=== PATIENT | female | born 1990 | race Caucasian/White ===

== ENCOUNTER 2022-05-29 14:10 | Outpatient (CLI) | payer BC | END 2022-05-29 14:11 | disposition home or self-care (01) | LOC: CSHULT 14:10 | PROVIDERS: ATTEND Otolaryngology Plastic Surgery within the Head & Neck | DX: E04.8 Other specified nontoxic goiter (principal); E06.3 Autoimmune thyroiditis; E04.1 Nontoxic single thyroid nodule | CPT/HCPCS: 76536 ==

== ENCOUNTER 2023-08-04 19:30 | Inpatient (IN) | payer BC ==
[2023-08-05 01:22] VITALS: BMI 32.5
[2023-08-05] MEDS ORDERED: Zolpidem Tartrate 5 MG TAB PO PRN (02:28)
[2023-08-05] MEDS ORDERED: Ibuprofen 800 MG TAB PO PRN (02:28)
[2023-08-05] MEDS ORDERED: HYDROcodone/Acetaminophen 5/325 mg Tablet PO PRN ×3 (02:28→22:22)
[2023-08-05] MEDS ORDERED: hydrALAZINE 20 MG/ML VIAL SLOW IVP PRN ×2 (02:28→22:22)
[2023-08-05] MEDS ORDERED: Acetaminophen 500 MG TAB PO PRN (02:28)
[2023-08-05] MEDS ORDERED: Ondansetron PF 4 MG/2 ML Vial IVP PRN ×3 (02:28→22:22)
[2023-08-05] MEDS ORDERED: Carboprost 250 MCG/ML AMP IM PRN (02:28)
[2023-08-05] MEDS ORDERED: Methylergonovine 0.2 MG/ML VIAL IM PRN (02:28)
[2023-08-05] MEDS ORDERED: Misoprostol 200 MCG TAB PR PRN (02:28)
[2023-08-05] MEDS ORDERED: fentaNYL 50 mcg/mL 1 mL Vial SLOW IVP PRN (02:28)
[2023-08-05] MEDS ORDERED: Lidocaine 1% (PF) 30 ML VIAL SC PRN (02:28)
[2023-08-05] MEDS ORDERED: Promethazine HCl 25 MG/ML VIAL IM PRN ×3 (02:28→22:22)
[2023-08-05] MEDS ORDERED: Oxytocin 30 units/NS 500 ML 500 ML IV SCH ×2 (02:30)
[2023-08-05] MEDS ORDERED: Lactated Ringer's 1,000 ML IV SCH (02:30)
[2023-08-05] MEDS: Misoprostol 100 MCG TAB VAG SCH ×3 (02:55→09:45)
[2023-08-05 03:24] LABS: Hematocrit 33.2 % (34.9-44.5); Hemoglobin 11.5 g/dL (12.0-15.5); Mean Corpuscular HGB CONC 34.6 g/dL (32.0-36.0); Mean Corpuscular Hemoglobin 32.9 pg (27.0-33.0); Mean Corpuscular Volume 94.9 fl (81.6-98.3); Mean Platelet Volume 12.9 fl (7.4-10.4); Platelet Count 200 10x3/uL (150-450); RBC Distribution Width 13.5 % (11.5-14.5); White Blood Cell (WBC) Count 11.2 10x3/uL (3.5-10.5)
[2023-08-05 04:47] LABS: HBSAg Index 0.19 S/CO (0-0.99); Hep B Surf Ag - L&D Non-Reactive S/CO (NonReactive); Syphilis Antibody Nonreactive (Nonreactive); Syphilis Antibody Index 0.04 S/CO (<1.00 Non-Reactive)
[2023-08-05] MEDS ORDERED: fentaNYL/Ropivacaine Epidural 100 ML ONE (12:40)
[2023-08-05] MEDS ORDERED: Naloxone HCl 0.4 mg/ml Vial IVP PRN ×2 (13:57)
[2023-08-05] MEDS ORDERED: Lactated Ringer's 500 ML IV PRN (13:57)
[2023-08-05] MEDS ORDERED: ePHEDrine Sulfate 50 MG/10 ML VIAL SLOW IVP PRN (13:57)
[2023-08-05] MEDS ORDERED: diphenhydrAMINE 50 MG/ML VIAL IVP PRN (13:57)
[2023-08-05] MEDS ORDERED: Moisturizing Cream (Eucerin) 113 GM JAR TOP PRN (13:57)
[2023-08-05] MEDS ORDERED: Acetaminophen 325 MG TAB PO PRN (13:57)
[2023-08-05] MEDS ORDERED: Communication Order-Pharmacy FS SCH (14:00)
[2023-08-05] MEDS ORDERED: fentaNYL 2 mcg/Ropivacaine 0.2% Epidural 100 ML CADD EPIDURAL SCH (14:00)
[2023-08-05] MEDS ORDERED: Bupivacaine 0.25% HCL 30 ML VIAL ONE (18:00)
[2023-08-05] MEDS ORDERED: ePHEDrine Sulfate 50 MG/10 ML VIAL ONE (18:00)
[2023-08-05] MEDS ORDERED: Benzocaine-Menthol 82.5 ML CAN TOP PRN (22:22)
[2023-08-05] MEDS ORDERED: Milk Of Magnesia 30 ML UDCUP PO PRN (22:22)
[2023-08-05] MEDS ORDERED: Lanolin Ointment 7 GM TUBE TOP PRN (22:22)
[2023-08-05] MEDS ORDERED: Preparation H Ointment 28 GM TUBE PR PRN (22:22)
[2023-08-05] MEDS ORDERED: Bisacodyl 10 MG SUPP PR PRN (22:22)
[2023-08-05] MEDS ORDERED: diphenhydrAMINE 25 MG CAP PO PRN (22:22)
[2023-08-05] MEDS ORDERED: Boostrix 0.5 ML (Tdap) VIAL (>/=7 yrs of age) IM ONE (22:22)
[2023-08-05] MEDS ORDERED: Docusate 100 MG CAP PO SCH (22:45)
[2023-08-05] MEDS ORDERED: Ibuprofen 800 MG TAB PO SCH (22:45)
[2023-08-06 04:39] LABS: Hematocrit 27.8 % (34.9-44.5); Hemoglobin 9.7 g/dL (12.0-15.5)
[2023-08-06] MEDS: Ibuprofen 800 MG TAB PO SCH ×3 (05:08→21:07)
[2023-08-06] MEDS: Misoprostol 100 MCG TAB VAG SCH ×2 (07:39→07:40)
[2023-08-06] MEDS: Docusate 100 MG CAP PO SCH ×2 (08:33→21:07)
[2023-08-06] MEDS: Prenatal Vitamin 1 TAB PO SCH (08:33)
[2023-08-06] MEDS: Ferrous Sulfate 325 MG TAB PO SCH ×2 (08:33→17:49)
[2023-08-07] MEDS: Ibuprofen 800 MG TAB PO SCH ×2 (05:45→13:39)
[2023-08-07 07:37] VITALS: BP 102/62; TEMP 98.2
[2023-08-07] MEDS: Prenatal Vitamin 1 TAB PO SCH (08:07)
[2023-08-07] MEDS: Ferrous Sulfate 325 MG TAB PO SCH (08:07)
[2023-08-07] MEDS: Docusate 100 MG CAP PO SCH (08:07)
== END 2023-08-07 14:20 | disposition home or self-care (01) | DRG 807 ==
LOC: CSHLD 08-05 01:01 → CSHPP 08-05 21:55
PROVIDERS: ADMIT Student in an Organized Health Care Education/Training Program; ATTEND Student in an Organized Health Care Education/Training Program
PROC: 10E0XZZ Delivery of Products of Conception, External Approach (ICD-10-PCS; principal; 2023-08-05)
PROC: 0KQM0ZZ Repair Perineum Muscle, Open Approach (ICD-10-PCS; 2023-08-05)
DX: O48.0 Post-term pregnancy (principal); Z37.0 Single live birth; Z88.8 Allergy status to other drugs, medicaments and biological substances; O70.1 Second degree perineal laceration during delivery; Z3A.40 40 weeks gestation of pregnancy
CPT/HCPCS: 36415; 85014; 85018; 85027; 86780; 86850; 86900; 86901; 87340; S0020

== ENCOUNTER 2024-02-05 12:06 | Outpatient (CLI) | payer BC | END 2024-02-05 12:07 | disposition home or self-care (01) | LOC: CSHRAD 12:06 | PROVIDERS: ATTEND Internal Medicine Rheumatology | DX: M54.2 Cervicalgia (principal); M54.50 Low back pain, unspecified; M54.6 Pain in thoracic spine | CPT/HCPCS: 72040; 72072; 72100 ==

== ENCOUNTER 2025-06-20 15:06 | Outpatient (CLI) | payer BC | END 2025-06-20 15:07 | disposition home or self-care (01) | LOC: CSHULT 15:06 | PROVIDERS: ATTEND Otolaryngology Otolaryngic Allergy | DX: E04.1 Nontoxic single thyroid nodule (principal) | CPT/HCPCS: 76536 ==